=== PATIENT | female | born 1930 | race Caucasian/White ===

== ENCOUNTER 2021-03-17 13:11 | Inpatient (IN) | payer OTHER, SELFPAY ==
[~2021-03-17] VITALS: Ht 160 cm; Wt 78.0 kg
[~2021-03-17 13:11] MED LIST: AMLO5TAB4 PO; LEVO25TA2 PO; SIMV20TA2 PO
[2021-03-17 13:19] VITALS: BP_SYST 148
--- NOTE | 2021-03-17 13:56 | NUR ---
Patient to ER bed 03 to gown for evaluation. Side rails up.
--- NOTE | 2021-03-17 14:00 | NUR ---
Pt brought by ambulance, A&Ox4, pt presents to ER with lower abdominal pain and poor appetite, pt afebrile, VSS, respirations even and unlabored, cap refill <3, will cont to monitor.
--- NOTE | 2021-03-17 14:00 | NUR ---
Note david in EDM - 03/17/21 at 2005 by SDEDAFJ Pt brought by self, A&Ox4, pt presents to ER with lower abdominal pain and poor appetite, pt afebrile, VSS, respirations even and unlabored, cap refill <3, will cont to monitor.
--- NOTE | 2021-03-17 14:10 | NUR ---
16 # FR In and Out catheter with use of sterile technique. Immediate return of 150 ml urine noted. Urine sample collected and sent to lab. Pt tolerated procedure . Patient unable to toilet self.
--- NOTE | 2021-03-17 14:30 | NUR ---
Dr Cueva evaluating patient at this time.
[2021-03-17 15:15] LABS: BILIRUBIN,URINE NEGATIVE (NEGATIVE); BLOOD, URINE 2+ (NEGATIVE); GLUCOSE,URINE NEGATIVE (NEGATIVE); KETONES,URINE 1+ (NEGATIVE); LEUKOCYTE ESTERASE ,URINE NEGATIVE (NEGATIVE); NITRITE, URINE NEGATIVE (NEGATIVE); PH,URINE 5.5 (5.0-8.0); PROTEIN URINE 2+ (NEGATIVE)
[2021-03-17 15:17] LABS: COLOR,URINE AMBER (YELLOW)
[2021-03-17 15:18] LABS: CLARITY/URINE SLIGHTLY HAZY (CLEAR)
[2021-03-17 15:33] LABS: BACTERIA,URINE FEW /HPF (None Seen); MUCUS,URINE 3+ /LPF (None Seen)
[2021-03-17 16:22] LABS: BASOPHILS % (AUTO) 0.2 % (0.0-2.0); HEMATOCRIT 47.6 % (36-48); LYMPHOCYTES # (AUTO) 0.7 K/uL (1.0-5.5); LYMPHOCYTES % (AUTO) 5.7 % (20.5-51.5); MEAN CORPUSCULAR HEMOGLOBIN 30 pg (27-31); MEAN CORPUSCULAR HGB CONC 34 % (32-36); MEAN CORPUSCULAR VOLUME 88 fL (79.0-98.0); MONOCYTES # (AUTO) 0.6 K/uL (0.0-1.0); MONOCYTES % (AUTO) 4.8 % (1.7-9.3); NEUTROPHILS # (AUTO) 11.1 K/uL (1.8-7.7); NEUTROPHILS % (AUTO) 89.3 % (40.0-70.0); PLATELET COUNT (AUTO) 185 K/uL (130-430); RED BLOOD CELL COUNT(AUTO) 5.45 MIL/uL (4.2-6.2); RED CELL DISTRIBUTION WIDTH 13.7 % (9.0-15.0); WHITE BLOOD COUNT (AUTO) 12.4 K/uL (4.8-10.8)
[2021-03-17 16:23] LABS: ANION GAP 13 (5-15); CALCIUM 8.5 mg/dL (8.4-11.0); CHLORIDE 97 mmol/L (98-107); CREATININE 1.04 mg/dL (0.55-1.30); GLUCOSE 130 mg/dL (70-99); POTASSIUM 3.5 mmol/L (3.5-5.1); SODIUM SERUM 135 mmol/L (136-145); UREA NITROGEN, BLOOD 17 mg/dL (8-21)
[2021-03-17 16:37] LABS: ALANINE AMINOTRANSFERASE 39 U/L (12-78); ALBUMIN 3.6 g/dL (3.4-4.8); ASPARTATE AMINOTRANSFERASE 36 U/L (10-37); LIPASE 63 U/L (73-393); TOTAL BILIRUBIN 0.9 mg/dL (0.0-1.0)
--- NOTE | 2021-03-17 16:56 | NUR ---
SPOKE WITH PT TO UPDATE
--- NOTE | 2021-03-17 16:56 | NUR ---
PT TRANSPORTED TO CT WITH TECH
[2021-03-17] MEDS ORDERED: NACL 0.9% 1,000 ML IV ONE (17:45)
--- NOTE | 2021-03-17 18:12 | NUR ---
PT URINATED THE BED, BEDDING CHANGED PT CLEANED STATES THAT SHE IS COMFORTABLE
--- NOTE | 2021-03-17 18:22 | NUR ---
IV BOLUS NS HUNG LEFT AC
--- NOTE | 2021-03-17 19:12 | NUR ---
Received report from YEFRI Hayden and continue care of patient.
[2021-03-17] MEDS ORDERED: AZITHROMYCIN 500 MG in NS 250 ML IV ONE (19:30)
[2021-03-17] MEDS ORDERED: cefTRIAXone 2 GM VIAL ONE (19:41)
[2021-03-17] MEDS ORDERED: AZITHROMYCIN 500 MG/VIAL (ZITHROMAX) IV ONE (19:41)
--- NOTE | 2021-03-17 20:11 | NUR ---
Spoke with patient's family, patient did not take medication for years, last visited with PMD over a year.
--- NOTE | 2021-03-17 20:12 | NUR ---
Medication reconciliation completed with information provided by patient's family. Any prior medication reconciliation on file was reviewed and corrected.
[2021-03-17] MEDS ORDERED: HYDROcodone/ACETAMIN 5-325 MG TAB (NORCO/ VICODIN) PO PRN (20:30)
[2021-03-17] MEDS ORDERED: ACETAMINOPHEN 325 MG TABLET PO PRN (20:30)
[2021-03-17] MEDS ORDERED: ALBUTEROL SULFATE 0.083% 2.5 MG/3 ML VIAL.NEB INH PRN (20:30)
[2021-03-17 21:00] VITALS: BP_SYST 158
--- NOTE | 2021-03-17 21:30 | NUR ---
Patient resting quietly. No acute distress noted. Vital signs within normal range.
--- NOTE | 2021-03-17 21:38 | NUR ---
Provided bedpan as request.
--- NOTE | 2021-03-17 22:44 | NUR ---
Patient is sleeping, no acute distress.
[2021-03-17] MEDS: NACL 0.9% 1,000 ML IV SCH (23:22)
--- NOTE | 2021-03-18 00:19 | NUR ---
Re-position patient.
[2021-03-18] MEDS ORDERED: PIPERACILLIN/TAZOBACTAM 3.375 GM/VIAL (ZOSYN) IV ONE ×2 (00:33→06:04)
[2021-03-18] MEDS: PIPERACILLIN/TAZO 3.375/DEX-IS 50 ML IV SCH ×2 (00:39→06:12)
--- NOTE | 2021-03-18 01:00 | NUR ---
Patient will be admitted to care of Dr. Rodrigues. Admitted to TELE unit. Will go to room 103A. Belongings list completed. Complete and up to date summary report printed. SBAR report to be given at bedside with opportunity for questions.
--- NOTE | 2021-03-18 01:28 | NUR ---
PATIENT DID NOT ARRIVE TO FLOOR WITH ID BAND Called ER waterfront director to print an ID band - ER waterfront director states they "cannot print anymore. We are out of ID bands." Will ask patient's name and date of as patient identifiers for medications. [facility].
--- NOTE | 2021-03-18 01:28 | NUR ---
Admission Note Received patient from ER with diagnosis of PNEUMONIA, BREAST MASS. Initial Plan of Care discussed-patient verbalized understanding. Oriented to room, call light, pain management and safety.
[2021-03-18 01:41] VITALS: BP_SYST 140
[2021-03-18] MEDS: NACL 0.9% 1,000 ML IV SCH (02:03)
--- NOTE | 2021-03-18 04:00 | NUR ---
ROUNDING NOTES Patient resting in bed - no s/s pain or distress noted. Respirations even and unlabored - head of bed elevated. IV site patent - no s/s redness infection or infiltration. Bed locked and in lowest position. Call light within reach - bed alarm on.
[2021-03-18 06:46] LABS: BASOPHILS % (AUTO) 0.3 % (0.0-2.0); EOSINOPHILS # (AUTO) 0.1 K/uL (0.0-0.4); EOSINOPHILS % (AUTO) 0.7 % (0.0-4.0); HEMATOCRIT 45.2 % (36-48); HEMOGLOBIN 15.3 g/dL (12.0-16.0); LYMPHOCYTES # (AUTO) 1.3 K/uL (1.0-5.5); LYMPHOCYTES % (AUTO) 9.3 % (20.5-51.5); MEAN CORPUSCULAR HEMOGLOBIN 30 pg (27-31); MEAN CORPUSCULAR HGB CONC 34 % (32-36); MEAN CORPUSCULAR VOLUME 89 fL (79.0-98.0); MONOCYTES # (AUTO) 1.2 K/uL (0.0-1.0); MONOCYTES % (AUTO) 8.3 % (1.7-9.3); NEUTROPHILS # (AUTO) 11.7 K/uL (1.8-7.7); NEUTROPHILS % (AUTO) 81.4 % (40.0-70.0); PLATELET COUNT (AUTO) 171 K/uL (130-430); RED BLOOD CELL COUNT(AUTO) 5.09 MIL/uL (4.2-6.2); RED CELL DISTRIBUTION WIDTH 13.8 % (9.0-15.0); WHITE BLOOD COUNT (AUTO) 14.4 K/uL (4.8-10.8)
[2021-03-18 08:05] VITALS: BP_SYST 149
--- NOTE | 2021-03-18 09:29 | NUR ---
CONSULTATION PAGED REASON FOR CONSULTATION:pneumonia WAS CONSULT CALLED?Y PERSON WHO WAS NOTIFIED:EVAN CONSULTING PHYSICIAN:SERAFIN COSTELLO DIRECTOR [employer] SPECIALTY:PNEUMONIA DIRECTOR [employer] PHONE NUMBER:[phone] REQUESTING PHYSICIAN:EMILE GROVER
--- NOTE | 2021-03-18 10:04 | NUR ---
requested information on home caregivers-Requested information given to patient's
--- NOTE | 2021-03-18 10:05 | NUR ---
Nutrition Update Marino Scale 14 noted. Pt admitted for pneumonia, breast mass. Diet: mechanical soft BMI: 30.5 kg/m2 RD to follow per nutrition care standards.
[2021-03-18 12:03] LABS: ALANINE AMINOTRANSFERASE 36 U/L (12-78); ALBUMIN 3.3 g/dL (3.4-4.8); ANION GAP 10 (5-15); ASPARTATE AMINOTRANSFERASE 50 U/L (10-37); CHLORIDE 103 mmol/L (98-107); CREATININE 1.03 mg/dL (0.55-1.30); GLUCOSE 116 mg/dL (70-99); POTASSIUM 3.6 mmol/L (3.5-5.1); SODIUM SERUM 139 mmol/L (136-145); UREA NITROGEN, BLOOD 16 mg/dL (8-21)
[2021-03-18 12:58] VITALS: BP_SYST 145
[2021-03-18 16:14] VITALS: BP_SYST 140
[2021-03-18 19:00] VITALS: BP_SYST 135
--- NOTE | 2021-03-18 19:15 | NUR ---
change of shift.pt.has been transferred to :123-a.r/o covid19 status.pui status.pt.presents no iv access.pt.to receive the placement of midline w/in the shift.pt.presents restraints wrist bilateral in place.general status stable.respiratory status stable. unlabored@room air.call light/telephone w/in access of the pt.
[2021-03-18 20:00] VITALS: BP_SYST 135
--- NOTE | 2021-03-18 20:00 | NUR ---
pt.assessed.v/s assessed values wnl.no c/o pain,nausea.pt.assessed for cleanliness pt.repositioned.no c/o pain,nausea.restraints wrist in place skin/circulation assessed wnl.call light/telephone placed w/in access of the pt.
--- NOTE | 2021-03-18 22:00 | NUR ---
pt.assessed.pt.presents quiescent affect somnolent.per flacc pain mgx pt.absent facial grimaces/body posturing.pt.assessed for cleanliness.pt.repositioned.call light/telephone placed w/in access of the pt.
--- NOTE | 2021-03-18 23:00 | NUR ---
debbie mid-line/picc line nsg had placed a mid-line;location rt.bicept.per debbie may utilize the mid line access.
[2021-03-19] VITALS: BP_SYST 110
--- NOTE | 2021-03-19 | NUR ---
pt.assessed.v/s assessed values wnl.restraints in place skin/circulation assessed wnl.i have initiated the administration zosyn abx/zithromax abx ivpb post placement mid line.per flacc pain mgx pt.absent facial grimaces/body posturing.pt.assessed for cleanliness pt.repositioned.call light placed w/in access of the pt.
[2021-03-19] MEDS ORDERED: PIPERACILLIN/TAZOBACTAM 3.375 GM/VIAL (ZOSYN) IV ONE (00:22)
[2021-03-19] MEDS ORDERED: AZITHROMYCIN 500 MG/VIAL (ZITHROMAX) IV ONE ×2 (00:22→21:08)
[2021-03-19] MEDS: AZITHROMYCIN 500 MG in NS 250 ML IV SCH ×2 (00:33→22:30)
[2021-03-19] MEDS: PIPERACILLIN/TAZO 3.375/DEX-IS 50 ML IV SCH ×2 (00:33→05:06)
--- NOTE | 2021-03-19 02:00 | NUR ---
pt.assessed.pt.presents awakened status.pt.requested water.i have assisted the pt.w the cup/water.restraints in place skin/circulation assessed wnl.iv access mid-line intact.iv fluids infusing.pt.assessed for cleanliness.pt.repositioned.no c/o a pain,nausea.call light/telephone placed w/in access of the pt.
[2021-03-19] MEDS: NACL 0.9% 1,000 ML IV SCH ×3 (03:58→12:33)
--- NOTE | 2021-03-19 04:00 | NUR ---
pt.assessed.pt.assessed for cleanliness.pt.cleaned/repositioned.pt.assessed general cutaneous integrity located;inter-dermatitis under breast bilateral;back assessed;skin lesions.i have photographed the cutaneous findings.iv access intact mid-line iv fluids infusing.o2-sat%=96%. no c/o pain,nausea.restraints wrist bilateral in place.skin/circulation assessed wnl.call light/telephone placed w/in access of the pt.
--- NOTE | 2021-03-19 06:04 | NUR ---
pt.assessed.pt.presents quiescent affect;somnolent.per flacc pain mgx pt.absent facial grimaces/body posturing. pt.assessed for cleanliness.pt.repositioned.mid-line intact iv fluids infusing.i have administered zosyn abx ivpb 0600a dose.restraints wrist bilateral in place skin/circulation assessed wnl.call light/telephone placed w/in access of the pt.
[2021-03-19 08:00] VITALS: BP_SYST 147
--- NOTE | 2021-03-19 11:19 | NUR ---
CONSULTATION PAGED REASON FOR CONSULTATION:BREAST MASS WAS CONSULT CALLED?Y PERSON WHO WAS NOTIFIED:JASPAL COLBY CONSULTING PHYSICIAN:NALLELY ROMEO ([employer]) NETWORKING TECHNICIAN SPECIALTY:SURGEON NETWORKING TECHNICIAN PHONE NUMBER:[phone] REQUESTING PHYSICIAN:VICKI PENA
--- NOTE | 2021-03-19 11:51 | NUR ---
Refused Ultrasound: Patient refused ultrasound of the breast per [facility] ultrasound.
[2021-03-19] MEDS: PIPERACILLIN/TAZOBACTAM 3.375 GM/ D5W 50 ML IV SCH ×4 (12:00→17:20)
[2021-03-19 12:09] VITALS: BP_SYST 160
[2021-03-19 16:30] VITALS: BP_SYST 150
--- NOTE | 2021-03-19 19:30 | NUR ---
CLOSING NOTES: ENDORSED TO NIGHT NURSE DARYL IN STABLE CONDITION.
[2021-03-19 20:00] VITALS: BP_SYST 157
--- NOTE | 2021-03-19 22:00 | NUR ---
ROUNDING NOTES Patient resting in bed - no s/s pain or distress noted. Respirations even and unlabored - head of bed elevated. Midline site patent - no s/s redness, infection, or infiltration. Bed locked and in lowest position. Call light within reach - bed alarm on.
[2021-03-20 00:30] VITALS: BP_SYST 179
--- NOTE | 2021-03-20 00:50 | NUR ---
DR. DRAKE NOTIFIED OF HIGH BLOOD PRESSURE Called at this time - states "I will put in the orders myself."
[2021-03-20 01:00] VITALS: BP_SYST 154
[2021-03-20] MEDS: PIPERACILLIN/TAZOBACTAM 3.375 GM/ D5W 50 ML IV SCH ×8 (01:19→17:40)
[2021-03-20] MEDS: hydrALAZINE HCL 20 MG/ML VIAL IVP PRN (01:35)
[2021-03-20] MEDS: NACL 0.9% 1,000 ML IV SCH (03:12)
[2021-03-20 06:51] LABS: BASOPHILS # (AUTO) 0.1 K/uL (0.0-0.2); BASOPHILS % (AUTO) 0.5 % (0.0-2.0); EOSINOPHILS % (AUTO) 0.1 % (0.0-4.0); HEMATOCRIT 43.7 % (36-48); HEMOGLOBIN 15.3 g/dL (12.0-16.0); LYMPHOCYTES # (AUTO) 0.6 K/uL (1.0-5.5); LYMPHOCYTES % (AUTO) 4.7 % (20.5-51.5); MEAN CORPUSCULAR HEMOGLOBIN 30 pg (27-31); MEAN CORPUSCULAR HGB CONC 35 % (32-36); MEAN CORPUSCULAR VOLUME 87 fL (79.0-98.0); MONOCYTES # (AUTO) 0.6 K/uL (0.0-1.0); MONOCYTES % (AUTO) 5.3 % (1.7-9.3); NEUTROPHILS # (AUTO) 10.9 K/uL (1.8-7.7); NEUTROPHILS % (AUTO) 89.4 % (40.0-70.0); PLATELET COUNT (AUTO) 169 K/uL (130-430); RED BLOOD CELL COUNT(AUTO) 5.04 MIL/uL (4.2-6.2); RED CELL DISTRIBUTION WIDTH 13.4 % (9.0-15.0); WHITE BLOOD COUNT (AUTO) 12.2 K/uL (4.8-10.8)
[2021-03-20 07:19] LABS: ANION GAP 15 (5-15); C-REACTIVE PROTEIN QUANT 2.3 mg/dL (0-0.5); CALCIUM 7.7 mg/dL (8.4-11.0); CHLORIDE 99 mmol/L (98-107); CREATININE 0.54 mg/dL (0.55-1.30); GLUCOSE 102 mg/dL (70-99); SODIUM SERUM 137 mmol/L (136-145); UREA NITROGEN, BLOOD 9 mg/dL (8-21)
[2021-03-20 08:00] VITALS: BP_SYST 158
--- NOTE | 2021-03-20 08:00 | NUR ---
AM ASSESSMENT. PT ALERT, ABLE TO ANSWER QUESTIONS, INCONTINENT OF BLADDER, GOOD PERINEAL CARE RENDERED, IVF INFUSING NS AT 100 ML PER HR, TRAY SERVED FOR HER BREAKFAST AFTER NURSING CARE. CALL LIGHT IN EASY REACH AND ENCOURAGED TO CALL NURSE FOR ASSISTANCE.
[2021-03-20 09:08] LABS: POTASSIUM 2.6 mmol/L (3.5-5.1)
[2021-03-20 09:12] LABS: ERYTHROCYTE SEDIMENTATION RATE 14 MM/HR (0-20)
--- NOTE | 2021-03-20 09:50 | NUR ---
FAMILY PT'S AND THEIR GRANDSON IN THE UNIT. UPDATE GIVEN ON HER STATUS.
[2021-03-20] MEDS ORDERED: POTASSIUM CHLORIDE 40 MEQ in NS 250 ML IV ONE (10:00)
[2021-03-20 12:08] VITALS: BP_SYST 158
[2021-03-20 12:47] VITALS: BP_SYST 119
[2021-03-20] MEDS: NORMAL SALINE 5 ML DISP.SYRIN IVF SCH ×2 (13:52→22:04)
[2021-03-20 16:40] VITALS: BP_SYST 122
--- NOTE | 2021-03-20 16:48 | NUR ---
Dietitian Recommendations * Recommend mechanical soft diet w/ Ensure Enlive BID (ONS provides 700 kcal/day, 40 gm protein/day) * Encourage increase PO intakes LP, RD Please refer to Nutrition Assessment for details. Addendum: 03/20/21 at [address] Amended: Links added.
--- NOTE | 2021-03-20 17:30 | NUR ---
HYGIENE. PT INCONTINENT OF BLADDER, GOOD PERINEAL CARE RENDERED, BOTTOM SHEETS CHANGED.
--- NOTE | 2021-03-20 19:35 | NUR ---
ROUNDS PATIENT RESTING COMFORTABLY I BED, VITALS STABLE, NOT IN DISTRESS, NO PAIN AND DISCOMFORT NOTED. ASSESSMET MEHTA AND DOCUEMETED. SEE FLOWSHEET. NEEDS ATTENDED TO. SAFETY MEASURES IN PLACED. CALL LIGHT PLACED WITHIN REACH.
[2021-03-20] MEDS ORDERED: AZITHROMYCIN 500 MG/VIAL (ZITHROMAX) IV ONE (20:54)
[2021-03-20] MEDS: AZITHROMYCIN 500 MG in NS 250 ML IV SCH (22:03)
[2021-03-21] VITALS: BP_SYST 167
--- NOTE | 2021-03-21 00:12 | NUR ---
PATIENT RESTING: Patient resting quietly. No acute distress noted. Vital signs within normal range.
[2021-03-21] MEDS: PIPERACILLIN/TAZOBACTAM 3.375 GM/ D5W 50 ML IV SCH ×6 (00:14→11:35)
[2021-03-21] MEDS: hydrALAZINE HCL 20 MG/ML VIAL IVP PRN (02:40)
[2021-03-21] MEDS: NORMAL SALINE 5 ML DISP.SYRIN IVF SCH ×3 (06:51→21:44)
[2021-03-21 07:37] LABS: BASOPHILS % (AUTO) 0.3 % (0.0-2.0); EOSINOPHILS % (AUTO) 0.1 % (0.0-4.0); HEMATOCRIT 46.1 % (36-48); HEMOGLOBIN 15.8 g/dL (12.0-16.0); LYMPHOCYTES # (AUTO) 0.6 K/uL (1.0-5.5); LYMPHOCYTES % (AUTO) 5.8 % (20.5-51.5); MEAN CORPUSCULAR HEMOGLOBIN 30 pg (27-31); MEAN CORPUSCULAR HGB CONC 34 % (32-36); MEAN CORPUSCULAR VOLUME 87 fL (79.0-98.0); MONOCYTES # (AUTO) 0.6 K/uL (0.0-1.0); MONOCYTES % (AUTO) 6.2 % (1.7-9.3); NEUTROPHILS # (AUTO) 8.5 K/uL (1.8-7.7); NEUTROPHILS % (AUTO) 87.6 % (40.0-70.0); PLATELET COUNT (AUTO) 201 K/uL (130-430); RED BLOOD CELL COUNT(AUTO) 5.29 MIL/uL (4.2-6.2); RED CELL DISTRIBUTION WIDTH 13.6 % (9.0-15.0); WHITE BLOOD COUNT (AUTO) 9.7 K/uL (4.8-10.8)
[2021-03-21 08:00] VITALS: BP_SYST 128
--- NOTE | 2021-03-21 08:00 | NUR ---
OPENING NOTE AWAKE, ORIENTED TO NAME AND PLACE AT THIS TIME. NO SIGN OF PAIN OR SHORTNESS OF BREATH. MIDLINE ON RIGHT UPPER ARM PATENT AND INTACT. NO BLOOD RETURN. OFFERED FOOD BUT PATIENT HAS NO APPETITE. ASKED IF SHE HAD ANY PARTICULAR FOOD SHE WANTS TO EAT, BUT SHE JUST REFUSED. WILL TRY AGAIN. FALL AND SAFETY CHECKS DONE. CALL LIGHT WITHIN REACH. WILL MONITOR.
[2021-03-21 08:20] LABS: ALANINE AMINOTRANSFERASE 31 U/L (12-78); ALBUMIN 2.6 g/dL (3.4-4.8); ANION GAP 14 (5-15); ASPARTATE AMINOTRANSFERASE 28 U/L (10-37); C-REACTIVE PROTEIN QUANT 2.5 mg/dL (0-0.5); CALCIUM 8.2 mg/dL (8.4-11.0); CHLORIDE 96 mmol/L (98-107); CREATININE 0.59 mg/dL (0.55-1.30); GLUCOSE 135 mg/dL (70-99); SODIUM SERUM 135 mmol/L (136-145); TOTAL BILIRUBIN 0.9 mg/dL (0.0-1.0); UREA NITROGEN, BLOOD 8 mg/dL (8-21)
[2021-03-21 10:01] LABS: ERYTHROCYTE SEDIMENTATION RATE 12 MM/HR (0-20)
[2021-03-21 10:05] LABS: POTASSIUM 2.6 mmol/L (3.5-5.1)
[2021-03-21] MEDS ORDERED: POTASSIUM CHLORIDE 60 MEQ in D5W 500 ML IV ONE (10:30)
--- NOTE | 2021-03-21 11:00 | NUR ---
ROUNDS PATIENT HAD A BOWEL MOVEMENT. CLEANED AND REPOSITIONED. OFFERED FOOD BUT PATIENT STILL REFUSED. FAMILY WAS UPDATED OF PLAN OF CARE. WILL DISCONTINUE COVID ISOLATIONS ORDERED BY .
[2021-03-21 12:04] VITALS: BP_SYST 160
--- NOTE | 2021-03-21 13:50 | NUR ---
PULLED OUT MIDLINE FOUND PATIENT ATTEMPTING TO GET OUT OF BED. IV MIDLINE ALREADY PULLED OUT. EDUCATION DONE. PATIENT VERBALIZED UNDERSTANDING. BOWEL MOVEMENT NOTED. CLEANED AND REPOSITIONED IN BED. FALL AND SAFETY CHECKS DONE. CALL LIGHT WITHIN REACH. WILL MONITOR.
[2021-03-21 16:04] VITALS: BP_SYST 142
--- NOTE | 2021-03-21 17:00 | NUR ---
ROOM TRANSFER PATIENT WAS TRANSFERRED TO ROOM 102-A. PATIENT IS AWARE THAT COVID ISOLATIONS ARE LIFTED. AT BEDSIDE, UPDATED WITH PLAN OF CARE. ATTEMPTED TO INSERT IV BUT WAS UNSUCCESSFUL. FALL AND SAFETY CHECKS DONE. CALL LIGHT WITHIN REACH. WILL MONITOR.
--- NOTE | 2021-03-21 18:50 | NUR ---
CLOSING NOTES RESTING. NO SIGN OF DISTRESS. ALL NEEDS MET. FOR MIDLINE PLACEMENT. TELEPHONE CONSENT PROVIDED BY . FALL AND SAFETY CHECKS DONE. CALL LIGHT WITHIN REACH. WILL ENDORSE TO NIGHT NURSE.
--- NOTE | 2021-03-21 19:30 | NUR ---
OPENING NOTE RESTING. NO SIGN OF DISTRESS. BREATHING UNLABORED. PATIENT TO HAVE MIDLINE PLACEMENT. TELEPHONE CONSENT PROVIDED BY . FALL AND SAFETY CHECKS DONE. CALL LIGHT WITHIN REACH. WILL MONITOR.
[2021-03-21 20:00] VITALS: BP_SYST 150
[2021-03-21] MEDS ORDERED: AZITHROMYCIN 500 MG/VIAL (ZITHROMAX) IV ONE (21:21)
[2021-03-21] MEDS: AZITHROMYCIN 500 MG in NS 250 ML IV SCH (21:42)
[2021-03-22] VITALS: BP_SYST 99
[2021-03-22] MEDS: PIPERACILLIN/TAZOBACTAM 3.375 GM/ D5W 50 ML IV SCH ×10 (00:32→23:36)
[2021-03-22] MEDS: NORMAL SALINE 5 ML DISP.SYRIN IVF SCH ×3 (06:18→21:25)
--- NOTE | 2021-03-22 07:01 | NUR ---
CLOSING NOTE PT RESTING IN BED, NO DISTRESS NOTED, MIDLINE IS PATENT. PT DENIES PAIN. SAFETY MAINTAINED. ALL NEEDS MET. WILL ENDORSE TO DAY SHIFT.
[2021-03-22 11:04] LABS: ANION GAP 9 (5-15); CALCIUM 8.7 mg/dL (8.4-11.0); CHLORIDE 104 mmol/L (98-107); CREATININE 0.77 mg/dL (0.55-1.30); GLUCOSE 127 mg/dL (70-99); SODIUM SERUM 141 mmol/L (136-145); UREA NITROGEN, BLOOD 12 mg/dL (8-21)
[2021-03-22] MEDS: hydrALAZINE HCL 20 MG/ML VIAL IVP PRN (12:10)
[2021-03-22 12:19] VITALS: BP_SYST 177
[2021-03-22] MEDS ORDERED: POTASSIUM CHLORIDE 20 MEQ TAB.PRT.SR PO ONE (12:45)
--- NOTE | 2021-03-22 13:00 | NUR ---
pt's family in very unhappy about their mother progress within the hospital stating their mom was active at home and now she is weak and not eating well teaching given that when pt is hospitalized it is due to a lack of not being their normal selves. they spoke with Dr. Byrd
--- NOTE | 2021-03-22 15:12 | NUR ---
physical therapist at pt bedside pt is more comprehensive to her own language [place]. She did get out the bed with assist of the physical therapist jessika well. A bedside commode was placed at beside but teaching was reinforced to call for assist and call light within reach but pt remains weak
[2021-03-22 16:16] VITALS: BP_SYST 149
--- NOTE | 2021-03-22 16:27 | NUR ---
pt was diven apresoline 10 mg ivp for a bp of 177/79 and was given 40meq potassium po for a potassium level of 3 earlier in the shift with effect bp after 15 minutes was 148/80 hr 78
--- NOTE | 2021-03-22 18:44 | NUR ---
was med time one with norco for generalized pain with effect
[2021-03-22 20:00] VITALS: BP_SYST 139
[2021-03-22] MEDS ORDERED: AZITHROMYCIN 500 MG/VIAL (ZITHROMAX) IV ONE (21:09)
[2021-03-22] MEDS: AZITHROMYCIN 500 MG in NS 250 ML IV SCH (21:22)
[2021-03-23] VITALS: BP_SYST 142
--- NOTE | 2021-03-23 02:09 | NUR ---
Patient in bed. No acute distress noted. Turned repositioned q2. No complaint of pain or discomfort. Will continue to monitor.
[2021-03-23] MEDS: PIPERACILLIN/TAZOBACTAM 3.375 GM/ D5W 50 ML IV SCH ×6 (04:54→17:30)
[2021-03-23] MEDS: NORMAL SALINE 5 ML DISP.SYRIN IVF SCH ×3 (04:55→21:34)
--- NOTE | 2021-03-23 06:35 | NUR ---
Attempted x5 to call patient's for verbal consent. No answer. Call placed to patient's grandson, grandson can not give consent. Grandson will call family and instruct them to call the hospital to give verbal consent. Will endorse to a.m. nurse.
--- NOTE | 2021-03-23 06:55 | NUR ---
Spoke with patient's daughter Alanis [phone], family is not ready to give consent for surgery. Will endorse to a.m. shift.
[2021-03-23 08:00] VITALS: BP_SYST 163
[2021-03-23 11:40] VITALS: BP_SYST 167
[2021-03-23 12:04] LABS: PROTHROMBIN TIME 10.9 SECS (9.5-12.5)
[2021-03-23] MEDS ORDERED: KCL 20 mEq in 100 mL (PREMIX) 100 ML IV ONE (12:15)
--- NOTE | 2021-03-23 12:27 | NUR ---
HIGH ALERT NOTE: Called Dr. lemus back at [phone] identified within the medical roster to verify physician authenticity.
[2021-03-23] MEDS ORDERED: KCL 20 mEq in 100 mL (PREMIX) 100 ML IV SCH (12:45)
--- NOTE | 2021-03-23 13:31 | NUR ---
Nutrition F/U Admitting Diagnosis: Pneumonia, breast mass Medical History Comment: PMH: HTN, hypothyroidism, scoliosis, back Sx per physician notes Pt was also found w/ sepsis per physician notes SARS-CoV-2 Ag (Rapid) Negative 03/17 & (PCR) Negative 03/18 03/23 MD notes: Generalized weakness, advanced dementia, incidental finding of 3cm left breast mass possible malignancy Subjective Information: Pt was seen in room, NPO cone at bedside, a/w surgery. Per EMR, an incidental left breast mass was found and MDs are suspicious that it may be malignant. Pts family wants surgery to be done during this admission. Pt is scheduled for left mastectomy today, NPO status. Pts abdomen is soft, nondistended w/ active bowel sounds, last BM 03/22 x1. Marino scale: 13, per RN notes, lower breast w/ intertriginous dermatitis. Non-pitting bilateral generalized edema. PO intake has been negligible since admission (Negligible <25% of estimated needs now x 6 days). Supplemental nutrition support is warranted if PO intake remains negligible for more than 7 days. Current Diet Order/Nutrition Support: NPO x 0 day (previously on Mechanical soft diet, Ensure Enlive BID) Pertinent Medications: Piperacillin/tazobactam Pertinent Labs 03/22 BG 127H Height: 5 feet, 3.00 inches Weight: 172 pounds/ 78.121359 kilograms (03/20) stable Body Mass Index: 30.46 kg/m2 Schulter/Adjusted Body Weight: IBW: 115#/52 kg. Adj IBW (obesity): 129#/59 kg Estimated Energy Expenditure (kcals/day) 5738-4084 kcal/day (30-35 kcal/kg Adj IBW d/t obesity, sepsis) Estimated Protein Required (g/day) 71-89 gm/day (1.2-1.5 gm/kg Adj IBW d/t obesity, sepsis) Estimated Fluid Required (l/day) 2-2.3 L/day (25-30 ml/kg CBW d/t GERIAT maintenance) Problem/Etiology/Signs/Symptoms Increased nutritional needs related to metabolic demands as evidenced by estimated nutritional requirements for sepsis. (*ongoing) Inadequate protein-calorie intake r/t poor appetite AEB PO intake meets <50% of estimated needs x 6 days. (*new) Expected Outcomes/Goals - Monitor appetite and PO intakes w/ goal of pt meeting at least 50% of estimated nutritional needs, labs trending WNL, normal GI function, and skin integrity/wt maintenance Dietitian Recommendations * Recommend continue mechanical soft diet w/ Ensure Enlive BID (ONS provides 700 kcal/day, 40 gm protein/day) * Maximum encouragement q meal. * Consider supplemental nutrition support if PO remains negligible for more than 7 days. Follow Up High Risk: F/U in 2-3days Addendum: 03/24/21 at [address] RD was approached by pt's primary RN who reported that pt is not eating well and pt's family would like for pt to receive Ensure more regularly. RD implemented Ensure Enlive TID to better meet pt's nutritional needs. RD to continue to follow as per nutrition care standards.
--- NOTE | 2021-03-23 13:36 | NUR ---
Dietitian Recommendations * Recommend continue mechanical soft diet w/ Ensure Enlive BID (ONS provides 700 kcal/day, 40 gm protein/day) * Maximum encouragement q meal. * Consider supplemental nutrition support if PO remains negligible for more than 7 days. Please see Nutrition F/U note for details. KIA, JONATHAN
[2021-03-23 16:00] VITALS: BP_SYST 153
--- NOTE | 2021-03-23 16:01 | NUR ---
Pt refused PT at this time, will try again another day. RN made aware.
--- NOTE | 2021-03-23 20:00 | NUR ---
OPENING NOTES RECEIVED PATIENT IN BED RESTING AROUSABLE TO NAME. NO C/O PAIN AT THIS TIME. BETHANIE MIDLINE DRESSING DRY AND INTACT. BED IN LOWEST LOCKED POSITION WITH ALARM ON. CALL LIGHT WITH IN REACH.
--- NOTE | 2021-03-23 21:30 | NUR ---
ROUNDS PATIENT VITAL SIGNS STABLE. DENIES PAIN.
[2021-03-23 21:34] VITALS: BP_SYST 155
[2021-03-24] VITALS: BP_SYST 168
[2021-03-24] MEDS: PIPERACILLIN/TAZOBACTAM 3.375 GM/ D5W 50 ML IV SCH ×10 (00:10→23:43)
--- NOTE | 2021-03-24 01:00 | NUR ---
INCONTINENCE INCONTINENCE CARE DONE BY VICE PRESIDENT PAYER.
[2021-03-24] MEDS: hydrALAZINE HCL 20 MG/ML VIAL IVP PRN (01:27)
--- NOTE | 2021-03-24 01:57 | NUR ---
BP PATIENT MEDICATED WITH APRESOLINE FOR BP 168/72.
--- NOTE | 2021-03-24 03:30 | NUR ---
ROUNDS PATIENT RESTING IN BED. NO DISTRESS NOTED. BED ALARM ON.
[2021-03-24] MEDS: NORMAL SALINE 5 ML DISP.SYRIN IVF SCH ×3 (05:17→21:18)
--- NOTE | 2021-03-24 05:30 | NUR ---
AM CARE INCONTINENCE CARE DONE BY MUNICIPAL COURT JUDGE.
--- NOTE | 2021-03-24 06:55 | NUR ---
CLOSING NOTES PATIENT AWAKE IN BED. NO C/O PAIN. PATIENT NEEDS ATTENDED. BED IN LOWEST LOCKED POSITION WITH ALARM ON.
--- NOTE | 2021-03-24 07:40 | NUR ---
Opening note Received report from night nurse. Patient is alert and oriented x3. On 2 L nasal cannula and tolerating well with no signs of shortness of breath noted. IV is patent, saline locked as ordered. Bed locked and in lowest position. Call light within reach. Bed alarm on. Will continue to monitor.
[2021-03-24 08:00] VITALS: BP_SYST 117
--- NOTE | 2021-03-24 08:00 | NUR ---
Spoke with Dr. Byrd regarding surgery. Said family needs to make a decision regarding surgery and if they do not make a decision by today, patient will be discharged home. Called daughter, Alihsa. Said she is not ready to make a decision yet. Requesting to talk to Dr. Rodrigues first. Will notify Dr. Rodrigues and Dr. Byrd.
--- NOTE | 2021-03-24 10:16 | NUR ---
Dr. Lilia kc MD to see patient. Informed him that family would like to speak with him and gave him daughter's number. Will follow through with new orders.
[2021-03-24 10:38] LABS: BASOPHILS % (AUTO) 0.4 % (0.0-2.0); EOSINOPHILS % (AUTO) 0.5 % (0.0-4.0); HEMATOCRIT 43.8 % (36-48); LYMPHOCYTES # (AUTO) 0.8 K/uL (1.0-5.5); MEAN CORPUSCULAR HEMOGLOBIN 30 pg (27-31); MEAN CORPUSCULAR HGB CONC 34 % (32-36); MEAN CORPUSCULAR VOLUME 87 fL (79.0-98.0); MONOCYTES # (AUTO) 0.7 K/uL (0.0-1.0); NEUTROPHILS # (AUTO) 7.6 K/uL (1.8-7.7); NEUTROPHILS % (AUTO) 82.1 % (40.0-70.0); PLATELET COUNT (AUTO) 245 K/uL (130-430); RED CELL DISTRIBUTION WIDTH 14.1 % (9.0-15.0); WHITE BLOOD COUNT (AUTO) 9.3 K/uL (4.8-10.8)
[2021-03-24 10:47] LABS: ANION GAP 7 (5-15); CALCIUM 8.6 mg/dL (8.4-11.0); CHLORIDE 106 mmol/L (98-107); CREATININE 0.82 mg/dL (0.55-1.30); GLUCOSE 120 mg/dL (70-99); POTASSIUM 3.1 mmol/L (3.5-5.1); SODIUM SERUM 141 mmol/L (136-145); UREA NITROGEN, BLOOD 15 mg/dL (8-21)
[2021-03-24 10:54] LABS: ALANINE AMINOTRANSFERASE 53 U/L (12-78); ALBUMIN 2.9 g/dL (3.4-4.8); ASPARTATE AMINOTRANSFERASE 35 U/L (10-37); TOTAL BILIRUBIN 0.7 mg/dL (0.0-1.0)
--- NOTE | 2021-03-24 11:28 | NUR ---
Spoke with son. He decided to not go through with surgery for patient. Dr. Byrd made aware. Patient is resting in bed, no distress noted. Will monitor.
[2021-03-24 12:19] VITALS: BP_SYST 139
--- NOTE | 2021-03-24 14:53 | NUR ---
Wound Evaluation: Late note for 03/24/2021 at 1453 secondary to patient care. Wound Consult ordered for Low Marino Score. Patient evaluated for a low Marino score of 16. Patient was awake, alert, oriented and received in a Pam Bed with an IsoFlex HAO mattress. Patient needs to be turned in bed. Skin assessment: 1. Left Breast Fold: Intertrigo with erythema, present on admission. Mild odor, no drainage. 2. Right Breast Fold: Intertrigo with erythema, present on admission. Mild odor, no drainage. Recommend: Cleanse involved areas with mild soap and water. Pat dry. Apply antifungal powder to involved areas. Dust off excess powder with clean gauze. Cut Inter-dry Ag cloth to size and place underneath breast folds. Perform site care twice daily, and as needed for soiling. Replace Inter-dry AG cloth every 5 days, and as needed for cloth soiling. 3. 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 Recommend: No dressings needed. Continue to monitor sites every shift. Recommend reposition patient side to side only every 2 hours with pillow support. Elevate, off-load and float bilateral heels with pillows. Offload pressure areas with pillows for pressure re-distribution. Perform skin care and monitor skin integrity Q shift. Use moisture barrier cream on moisture susceptible areas QID and PRN for soiling. Place patient on a low air-loss mattress.
--- NOTE | 2021-03-24 15:10 | NUR ---
Nutrition Note RD was approached by pt's primary RN who reported that pt is not eating well and pt's family would like for pt to receive Ensure more regularly. RD implemented Ensure Enlive TID to better meet pt's nutritional needs. RD to continue to follow as per nutrition care standards.
[2021-03-24 16:29] VITALS: BP_SYST 133
--- NOTE | 2021-03-24 18:15 | NUR ---
RN note Iv antibiotic given. Patient had a few bites of dinner and then refused. Drank about 30% of Ensure. Will monitor.
--- NOTE | 2021-03-24 18:36 | NUR ---
Closing note Patient is sleeping in bed. On 2 L nasal cannula and tolerating well with no signs of shortness of breath noted. IV is patent, TKO. Bed locked and in lowest position. Call light within reach. Bed alarm on. Will endorse to night nurse.
--- NOTE | 2021-03-24 19:45 | NUR ---
initial notes: pt is awake, alert, oriented x 2. no complain of pain. not distress, no sob, stable vital sign. iv lock to left upper arm is intact and patent. explain plan of care, needs follow up on teach . call light in reach, low bed position, side rails up. will follow up.
[2021-03-24 19:53] VITALS: BP_SYST 122
--- NOTE | 2021-03-25 | NUR ---
pt is sleeping, no sign of pain, not distress, stable.
--- NOTE | 2021-03-25 00:12 | NUR ---
[facility] CALLED [facility] TO CONFIRM [address] FOR TODAY 8\\ SHE SAID IT WAS SET UP WITH [facility] . INFORMED HER THAT WE WILL CALL IN THE MORNING TO CONFIRM [facility] [phone]
[2021-03-25 01:24] VITALS: BP_SYST 131
[2021-03-25] MEDS: NORMAL SALINE 5 ML DISP.SYRIN IVF SCH (06:39)
--- NOTE | 2021-03-25 06:43 | NUR ---
closing: pt is resting, wakes up. no pain, not distress, no sob, stable, midline to left upper intact and patent. needs attended the whole shift. will give sbar report to am rn.
--- NOTE | 2021-03-25 07:20 | NUR ---
OPENING NOTES: RECEIVED PATIENT FROM DOUGH PANNER NURSE. PATIENT IS AWAKE LAYING DOWN IN BED. TOLERATED OXYGEN ON 2L NASAL CANNULA WITH NO DISTRESS NOTED. BETHNAIE MIDLINE INTACT, CLEAN, AND DRY. PATIENT STABLE AT THIS TIME. SAFETY, FALL, AND ASPIRATION PRECAUTIONS ARE IN PLACE. BED LOCKED IN LOWEST POSITION AND CALL LIGHT IN REACH. WILL CONTINUE TO MONITOR PATIENT FOR ANY CHANGES.
[2021-03-25 08:00] VITALS: BP_SYST 147
--- NOTE | 2021-03-25 09:30 | NUR ---
SPOKE TO ROSANNE OF [facility] AND MENTIONED THAT PATIENT WILL BE UNDER HOSPICE. AND SHE SPOKE TO THE FAMILY AND AGREED.
--- NOTE | 2021-03-25 09:40 | NUR ---
PAGED PAGED DR ODOM FOR ORDERS
[2021-03-25 11:19] VITALS: BP_SYST 147
--- NOTE | 2021-03-25 12:00 | NUR ---
D/C Patient Patient given medication reconciliation form and D/C instructions. Exit Care provided. Patient verbalized understanding. MD discussed with patient the results and treatment provided. Ambulatory with steady gait for discharge to home with hospice ([facility]). Patient in stable condition, ID band removed. IV catheter removed, intact and dressing applied, no active bleeding. Patient educated on pain management. All belongings sent with patient.
== END 2021-03-25 12:00 | disposition hospice, home (50) | DRG 871 ==
LOC: SED 13:11 → STU 20:22 → SMU 03-23 12:09
PROVIDERS: ADMIT Internal Medicine Hospice and Palliative Medicine; ATTEND Internal Medicine Hospice and Palliative Medicine
PROC: 05HY33Z Insertion of Infusion Device into Upper Vein, Percutaneous Approach (ICD-10-PCS; principal; 2021-03-18)
PROC: 05HY33Z Insertion of Infusion Device into Upper Vein, Percutaneous Approach (ICD-10-PCS; 2021-03-21)
DX: A41.9 Sepsis, unspecified organism (principal); J18.9 Pneumonia, unspecified organism; E43 Unspecified severe protein-calorie malnutrition; J96.00 Acute respiratory failure, unspecified whether with hypoxia or hypercapnia; E87.1 Hypo-osmolality and hyponatremia; N39.0 Urinary tract infection, site not specified; E87.2 Acidosis; I10 Essential (primary) hypertension; F03.90 Unspecified dementia, unspecified severity, without behavioral disturbance, psychotic disturbance, mood disturbance, and anxiety; Z20.822 Contact with and (suspected) exposure to COVID-19; E03.9 Hypothyroidism, unspecified; E78.5 Hyperlipidemia, unspecified; C50.912 Malignant neoplasm of unspecified site of left female breast; M41.9 Scoliosis, unspecified; Z82.49 Family history of ischemic heart disease and other diseases of the circulatory system; Z79.899 Other long term (current) drug therapy; Z68.30 Body mass index [BMI] 30.0-30.9, adult
CPT/HCPCS: 36415; 71045; 76376; 76642; 80048; 80053; 81000; 83605; 83690; 84443; 84484; 85025; 85610-TC; 85651-TC; 85730-TC; 86140; 87040-TC; 87081; 93005; 93306; 94640; 94760; 96365; 96366; 96367; 97116-GP; 97530-GP; 99285; G0378; J0360; J0456; J0696; J2543; J3480; J7050; J7060; J7613; U0003